=== PATIENT | male | born 1975 | race Caucasian/White ===

== ENCOUNTER 2017-04-07 04:42 | Emergency (ER) | payer SELFPAY ==
[~2017-04-07] VITALS: Ht 177.8 cm; Wt 100.0 kg
[2017-04-07 04:50] VITALS: BP 123/68
== END 2017-04-07 12:45 | disposition left against medical advice (07) ==
LOC: ER 07:17
DX: Z53.21 Procedure and treatment not carried out due to patient leaving prior to being seen by health care provider (principal)
CPT/HCPCS: 93005